=== PATIENT | female | born 1965 | race Caucasian/White ===

== ENCOUNTER 2017-02-25 11:53 | Emergency (ER) | payer OTHER ==
[2017-02-25] MEDS ORDERED: Acetaminophen/HYDROcodone 325-10 MG Tab PO ONE (13:03)
--- NOTE | 2017-02-25 13:13 | EDM.PDOC ---
ED HPI GENERAL MEDICAL PROBLEM - General Chief Complaint: Upper Extremity Injury/Pain Stated Complaint: LEFT ARM, PAIN Time Seen by Provider: 02/25/17 12:50 Source of Information: Reports: Patient History Limitations: Reports: No Limitations - History of Present Illness INITIAL COMMENTS - FREE TEXT/NARRATIVE: This 51 yo female patient reports to the ED with left arm pain. The patient reports she was seen in the ED in [place] on February 16 after falling while dancing. The patient reports she was dancing when they turned off the lights and she fell over a curb. The patient has a cast on her right distal arm, a splint on her left distal arm and a sling on her left arm. The patient reports initially she was taking 2 Oxycodone (5 mg) every 8 hours to control her pain, but over the last several days she has only been taking 1. The patient reports she ran out of pain medication yesterday and has noticed increased pain since that time. Onset: Other (constant) Onset Date: 02/16/17 Location: Reports: Upper Extremity, Left, Upper Extremity, Right Quality: Reports: Ache, Sharp Severity: Severe Improves with: Reports: Medication Worsens with: Reports: Movement Context: Reports: Other Associated Symptoms: Reports: No Other Symptoms Treatments CUSTOMER RESOLUTION SPECIALIST: Reports: Acetaminophen - Related Data Allergies Allergy/AdvReac Type Severity Reaction Status Date / Time diphenhydramine Allergy Severe Chest Pain Verified 02/25/17 12:08 [From Benadryl] sumatriptan [From Imitrex] Allergy Unknown unknown Verified 02/25/17 12:08 aspirin AdvReac Unknown unknown Verified 02/25/17 12:08 ibuprofen AdvReac Unknown affects Verified 02/25/17 12:08 seizures Home Meds: Home Meds Acetaminophen [Tylenol] 2 tab PO ASDIRECTED 02/25/17 [History] Calcium Carb/Vitamin D3/Vit K1 [Calcium + Vit D & K Chew] 1 tab PO DAILY [History] Levothyroxine [Synthroid] 100 mcg PO ACBREAKFAST 02/25/17 [History] Omeprazole Magnesium [Prilosec Otc] 2 tab PO DAILY 02/25/17 [History] oxyCODONE 1 tab PO TID 02/25/17 [History] Past Medical History HEENT History: Reports: Impaired Vision Other HEENT History: wears glasses Cardiovascular History: Reports: None Respiratory History: Reports: None Gastrointestinal History: Reports: GERD Genitourinary History: Reports: None Musculoskeletal History: Reports: Fibromyalgia Neurological History: Reports: Migraines, Seizure Psychiatric History: Reports: None Endocrine/Metabolic History: Reports: Hypothyroidism, Vitamin D Deficiency Hematologic History: Reports: None Immunologic History: Reports: None Oncologic (Cancer) History: Reports: None Dermatologic History: Reports: None - Past Surgical History HEENT Surgical History: Reports: Other (See Below) Other HEENT Surgeries/Procedures: 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 ED EXAM, GENERAL - Physical Exam Exam: See Below Exam Limited By: No Limitations General Appearance: Alert, WD/WN, Moderate Distress Eye Exam: Bilateral Eye: EOMI, Normal Inspection, PERRL Ears: Normal External Exam, Normal Canal, Hearing Grossly Normal, Normal TMs Nose: Normal Inspection, Normal Mucosa, No Blood Throat/Mouth: Normal Inspection, Normal Lips, Normal Teeth, Normal Gums, Normal Oropharynx, Normal Voice, No Airway Compromise Head: Atraumatic, Normocephalic Neck: Normal Inspection, Supple, Non-Tender, Full Range of Motion Respiratory/Chest: No Respiratory Distress, Lungs Clear, Normal Breath Sounds, No Accessory Muscle Use, Chest Non-Tender Cardiovascular: Normal Peripheral Pulses, Regular Rate, Rhythm, No Edema, No Gallop, No JVD, No Murmur, No Rub GI/Abdominal: Normal Bowel Sounds, Soft, Non-Tender, No Organomegaly, No Distention, No Abnormal Bruit, No Mass (Female) Exam: Deferred Rectal (Female) Exam: Deferred Extremities: Arm Pain (bilateral arm pain due to fractures previously diagnosed. Records were received from [facility] in [place] reporting bilateral fractures of her Radius/Ulna. ) Neurological: Alert, Oriented, CN II-XII Intact, Normal Cognition, Normal Gait, Normal Reflexes Psychiatric: Normal Affect, Normal Mood Skin Exam: Warm, Dry, Intact, Normal Color, No Rash Lymphatic: No Adenopathy Course - Vital Signs Last Recorded V/S: Last Vital Signs Temp 36.8 C 02/25/17 12:02 Pulse 92 02/25/17 12:02 Resp 22 H 02/25/17 12:02 BP 145/89 H 02/25/17 12:02 Pulse Ox 100 02/25/17 12:02 - Orders/Labs/Meds Meds: Medications Discontinued Medications Generic Name Dose Route Start Last Admin Trade Name Cale PRN Reason Stop Dose Admin Hydrocodone Bitart/Acetaminophen 1 tab 02/25/17 13:03 [place] 325-10 Mg PO 02/25/17 13:04 ONETIME ONE Departure - Departure Time of Disposition: 13:14 Disposition: Home, Self-Care 01 Condition: Fair Clinical Impression: Pain Closed fracture of bilateral radius and ulna Qualifiers: Encounter type: subsequent encounter Fracture healing: with routine healing Qualified Code(s): S52.201D - Unspecified fracture of shaft of right ulna, subsequent encounter for closed fracture with routine healing; S52.202D - Unspecified fracture of shaft of left ulna, subsequent encounter for closed fracture with routine healing; S52.91XD - Unspecified fracture of right forearm , subsequent encounter for closed fracture with routine healing; S52.92XD - Unspecified fracture of left forearm, subsequent encounter for closed fracture with routine healing - Discharge Information Instructions: Cast or Splint Care, [id number], Wrist Fracture Treated With Immobilization, [id number] Forms: ED Department Discharge Care Plan Goals: The patient was advised of the examination results during the visit. The patient was given an oral dose of [place] (10/325) while in the ED. The patient was discharged with a script for [place] (10/325) #16 to take 1 by mouth every 6 hours as needed for pain. The patient should follow-up with Dr. Cruz as previously scheduled. If the patient has any additional symptoms or concerns, the patient should visit her primary care facility or return to the emergency department.
[2017-02-25 13:18] VITALS: BP 152/98
== END 2017-02-25 13:23 | disposition home or self-care (01) ==
LOC: DL.ED 11:53
DX: S52.201D Unspecified fracture of shaft of right ulna, subsequent encounter for closed fracture with routine healing (principal); S52.202D Unspecified fracture of shaft of left ulna, subsequent encounter for closed fracture with routine healing; S52.91XD Unspecified fracture of right forearm, subsequent encounter for closed fracture with routine healing; S52.92XD Unspecified fracture of left forearm, subsequent encounter for closed fracture with routine healing; K21.9 Gastro-esophageal reflux disease without esophagitis; E89.2 Postprocedural hypoparathyroidism; Z90.710 Acquired absence of both cervix and uterus; Z88.6 Allergy status to analgesic agent; Z88.8 Allergy status to other drugs, medicaments and biological substances; Z79.899 Other long term (current) drug therapy; W01.0XXD Fall on same level from slipping, tripping and stumbling without subsequent striking against object, subsequent encounter; Y93.41 Activity, dancing
CPT/HCPCS: 99283; A9270

== ENCOUNTER 2021-03-12 15:48 | Emergency (ER) | payer MEDICAID, OTHER ==
[2021-03-12 16:12] VITALS: BP 179/110; PULSE 86
[2021-03-12 19:04] LABS: AMPHETAMINES,URINE NEGATIVE (NEGATIVE); BARBITURATES,URINE NEGATIVE (NEGATIVE); BENZODIAZEPINE,URINE NEGATIVE (NEGATIVE); MDMA (ECSTASY), URINE NEGATIVE (NEGATIVE); METHADONE,URINE NEGATIVE (NEGATIVE); METHAMPHETAMINES,URINE NEGATIVE (NEGATIVE); OPIATES,URINE NEGATIVE (NEGATIVE); OXYCODONE,URINE NEGATIVE (NEGATIVE); PHENCYCLIDINE,URINE NEGATIVE (NEGATIVE); TCA,URINE NEGATIVE (NEGATIVE)
[2021-03-12] MEDS ORDERED: Iopamidol 612 MG/ML 100 ML Bottle IVPUSH ONE (19:05)
[2021-03-12 19:13] LABS: ANION GAP 14.9 mEq/L (7-13); CHLORIDE,CL 104 mmol/L (98-107); SODIUM,NA 144 mmol/L (136-145)
--- NOTE | 2021-03-12 19:48 | EDM.PDOC ---
ED HPI GENERAL MEDICAL PROBLEM - General Chief Complaint: Genitourinary Problem Stated Complaint: POSSIBLE UTI Time Seen by Provider: 03/12/21 19:40 Source of Information: Reports: Patient History Limitations: Reports: No Limitations - History of Present Illness INITIAL COMMENTS - FREE TEXT/NARRATIVE: This 55 yo female patient reports to the ED with lower abdominal pain/tendern ess. The patient reports her pain has been getting worse over the past 4 days. The patient reports she does have a history of diverticulitis. The patient has had a tubal ligation and eventually a hysterectomy. The patient reports her symptoms currently feel like either a bladder infection of a flair of her diverticulitis. Onset Date: 03/08/21 Duration: Constant, Getting Worse Location: Reports: Abdomen (lower abdomen (left > right). ) Quality: Reports: Ache, Dull Severity: Moderate Improves with: Reports: None Worsens with: Reports: None Context: Reports: Other Associated Symptoms: Reports: No Other Symptoms Lower Abdomen Pain Score (Numeric/FACES): 3 - Related Data Allergies Allergy/AdvReac Type Severity Reaction Status Date / Time diphenhydramine Allergy Severe Chest Pain Verified 03/12/21 16:12 [From Benadryl] sumatriptan [From Imitrex] Allergy Unknown unknown Verified 03/12/21 16:12 aspirin AdvReac Unknown unknown Verified 03/12/21 16:12 ibuprofen AdvReac Unknown affects Verified 03/12/21 16:12 seizures Home Meds: Home Meds Acetaminophen [Tylenol] 650 mg PO ASDIRECTED 02/25/17 [History] Calcium Carb/Vitamin D3/Vit K1 [Calcium + Vit D & K Chew] 1 tab PO DAILY 02/25/17 [History] Levothyroxine [Synthroid] 100 mcg PO ACBREAKFAST 02/25/17 [History] Omeprazole Magnesium [Prilosec Otc] 2 tab PO DAILY 02/25/17 [History] Past Medical History HEENT History: Reports: Impaired Vision Other HEENT History: wears glasses Cardiovascular History: Reports: None Respiratory History: Reports: None Gastrointestinal History: Reports: GERD Genitourinary History: Reports: None Musculoskeletal History: Reports: Fibromyalgia Neurological History: Reports: Migraines, Seizure Psychiatric History: Reports: None Endocrine/Metabolic History: Reports: Hypothyroidism, Vitamin D Deficiency Hematologic History: Reports: None Immunologic History: Reports: None Oncologic (Cancer) History: Reports: None Dermatologic History: Reports: None - Infectious Disease History Infectious Disease History: Reports: None - Past Surgical History HEENT Surgical History: Reports: Other (See Below) Other HEENT Surgeries/Procedures: 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 Cardiovascular Surgical History: Reports: None Respiratory Surgical History: Reports: None GI Surgical History: Reports: None Female Surgical History: Reports: Hysterectomy Endocrine Surgical History: Reports: Parathyroidectomy Social & Family History - Family History Family Medical History: No Pertinent Family History - Tobacco Use Tobacco Use Status *Q: Never Tobacco User Second Hand Smoke Exposure: No - Caffeine Use Caffeine Use: Reports: Coffee - Recreational Drug Use Recreational Drug Use: No ED ROS GENERAL - Review of Systems Review Of Systems: Comprehensive ROS is negative, except as noted in HPI. ED EXAM, GI/ABD - Physical Exam Exam: See Below Exam Limited By: No Limitations General Appearance: Alert, WD/WN, No Apparent Distress Eyes: Bilateral: Normal Appearance, EOMI Ears: Normal External Exam, Normal Canal, Hearing Grossly Normal, Normal TMs Nose: Normal Inspection, Normal Mucosa, No Blood Throat/Mouth: Normal Inspection, Normal Lips, Normal Teeth, Normal Gums, Normal Oropharynx, Normal Voice, No Airway Compromise Head: Atraumatic, Normocephalic Neck: Normal Inspection, Supple, Non-Tender, Full Range of Motion Respiratory/Chest: No Respiratory Distress, Lungs Clear, Normal Breath Sounds, No Accessory Muscle Use, Chest Non-Tender Cardiovascular: Normal Peripheral Pulses, Regular Rate, Rhythm, No Edema, No Gallop, No JVD, No Murmur, No Rub GI/Abdominal Exam: No Organomegaly, No Distention, No Abnormal Bruit, No Mass, Pelvis Stable, Tender (diffuse lower abdominal tenderness) (Female) Exam: Deferred Rectal (Female) Exam: Deferred Back Exam: Normal Inspection, Full Range of Motion, NT Extremities: Normal Inspection, Normal Range of Motion, Non-Tender, Normal Capillary Refill, No Pedal Edema Neurological: Alert, Oriented, CN II-XII Intact, Normal Cognition, Normal Gait, Normal Reflexes, No Motor/Sensory Deficits Psychiatric: Normal Affect, Normal Mood Skin Exam: Warm, Dry, Intact, Normal Color, No Rash Lymphatic: No Adenopathy Course - Vital Signs Last Recorded V/S: Last Vital Signs Temp 97.7 F 08/15/21 16:06 Pulse 86 03/12/21 16:06 Resp 20 03/12/21 16:06 BP 179/110 H 03/12/21 16:06 Pulse Ox 99 03/12/21 16:06 - Orders/Labs/Meds Labs: Laboratory Tests 03/12/21 03/12/21 03/12/21 Range/Units 15:55 15:55 18:47 WBC 8.1 (5.0-10.0) 10^3/uL RBC 4.69 (4.2-5.4) 10^6/uL Hgb 14.8 (12.0-16.0) g/dL Hct 43.6 (37.0-47.0) % MCV 93.0 (80-100) fL MCH 31.6 (27.0-34.0) pg MCHC 33.9 (33.0-35.0) g/dL Plt Count 282 (150-450) 10^3/uL Neut % (Auto) 57.4 (42.2-75.2) % Lymph % (Auto) 32.5 (20.5-50.1) % Barton % (Auto) 8.7 H (2-8) % Eos % (Auto) 0.9 L (1.0-3.0) % Baso % (Auto) 0.5 (0.0-1.0) % Sodium (136-145) mmol/L Potassium (3.5-5.1) mmol/L Chloride (98-107) mmol/L Carbon Dioxide (21-32) mmol/L Anion Gap (7-13) mEq/L BUN (7-18) mg/dL Creatinine (0.55-1.02) mg/dL Est Cr Clr Drug Dosing mL/min Estimated GFR (MDRD) BUN/Creatinine Ratio (No establ ref range) Glucose (70-99) mg/dL Lactic Acid (0.4-2.0) mmol/L Calcium (8.5-10.1) mg/dL Total Bilirubin (0.2-1.0) mg/dL AST (15-37) U/L ALT (14-59) U/L Alkaline Phosphatase (46-116) U/L C-Reactive Protein (0.0-0.9) mg/dL Total Protein (6.4-8.2) g/dL Albumin (3.4-5.0) g/dL Globulin Albumin/Globulin Ratio Amylase (25-115) U/L Lipase (73-393) U/L Urine Color Yellow (YELLOW) Urine Appearance Clear (CLEAR) Urine pH 5.5 (5.0-9.0) Ur Specific [place] >= 1.030 (1.005-1.030) Urine Protein Negative (NEGATIVE) Urine Glucose (UA) Negative (NEGATIVE) Urine Ketones Negative (NEGATIVE) Urine Occult Blood Negative (NEGATIVE) Urine Nitrite Negative (NEGATIVE) Urine Bilirubin Negative (NEGATIVE) Urine Urobilinogen 0.2 (0.2-1.0) mg/dL Ur Leukocyte Esterase Negative (NEGATIVE) Urine Opiates Screen Negative (NEGATIVE) Ur Oxycodone Screen Negative (NEGATIVE) Urine Methadone Screen Negative (NEGATIVE) Ur Barbiturates Screen Negative (NEGATIVE) U Tricyclic Antidepress Negative (NEGATIVE) Ur Phencyclidine Scrn Negative (NEGATIVE) Ur Amphetamine Screen Negative (NEGATIVE) U Methamphetamines Scrn Negative (NEGATIVE) Urine MDMA Screen Negative (NEGATIVE) U Benzodiazepines Scrn Negative (NEGATIVE) Urine Cocaine Screen Negative (NEGATIVE) U Marijuana (THC) Screen Negative (NEGATIVE) Ethyl Alcohol (0) mg/dL 03/12/21 03/12/21 Range/Units 18:47 18:47 WBC (5.0-10.0) 10^3/uL RBC (4.2-5.4) 10^6/uL Hgb (12.0-16.0) g/dL Hct (37.0-47.0) % MCV (80-100) fL MCH (27.0-34.0) pg MCHC (33.0-35.0) g/dL Plt Count (150-450) 10^3/uL Neut % (Auto) (42.2-75.2) % Lymph % (Auto) (20.5-50.1) % Barton % (Auto) (2-8) % Eos % (Auto) (1.0-3.0) % Baso % (Auto) (0.0-1.0) % Sodium 144 (136-145) mmol/L Potassium 3.9 (3.5-5.1) mmol/L Chloride 104 (98-107) mmol/L Carbon Dioxide 29 (21-32) mmol/L Anion Gap 14.9 H (7-13) mEq/L BUN 17 (7-18) mg/dL Creatinine 0.89 (0.55-1.02) mg/dL Est Cr Clr Drug Dosing 65.78 mL/min Estimated GFR (MDRD) > 60 BUN/Creatinine Ratio 19.1 (No establ ref range) Glucose 94 (70-99) mg/dL Lactic Acid 0.7 (0.4-2.0) mmol/L Calcium 9.2 (8.5-10.1) mg/dL Total Bilirubin 0.4 (0.2-1.0) mg/dL AST 20 (15-37) U/L ALT 45 (14-59) U/L Alkaline Phosphatase 92 (46-116) U/L C-Reactive Protein < 0.2 (0.0-0.9) mg/dL Total Protein 7.6 (6.4-8.2) g/dL Albumin 3.8 (3.4-5.0) g/dL Globulin 3.8 Albumin/Globulin Ratio 1.0 Amylase 35 (25-115) U/L Lipase 125 (73-393) U/L Urine Color (YELLOW) Urine Appearance (CLEAR) Urine pH (5.0-9.0) Ur Specific [place] (1.005-1.030) Urine Protein (NEGATIVE) Urine Glucose (UA) (NEGATIVE) Urine Ketones (NEGATIVE) Urine Occult Blood (NEGATIVE) Urine Nitrite (NEGATIVE) Urine Bilirubin (NEGATIVE) Urine Urobilinogen (0.2-1.0) mg/dL Ur Leukocyte Esterase (NEGATIVE) Urine Opiates Screen (NEGATIVE) Ur Oxycodone Screen (NEGATIVE) Urine Methadone Screen (NEGATIVE) Ur Barbiturates Screen (NEGATIVE) U Tricyclic Antidepress (NEGATIVE) Ur Phencyclidine Scrn (NEGATIVE) Ur Amphetamine Screen (NEGATIVE) U Methamphetamines Scrn (NEGATIVE) Urine MDMA Screen (NEGATIVE) U Benzodiazepines Scrn (NEGATIVE) Urine Cocaine Screen (NEGATIVE) U Marijuana (THC) Screen (NEGATIVE) Ethyl Alcohol < 3 (0) mg/dL Meds: Medications Discontinued Medications Generic Name Dose Route Start Last Admin Trade Name Freq PRN Reason Stop Dose Admin Iopamidol 100 ml 03/12/21 19:05 03/12/21 19:10 Iopamidol 612 Mg/Ml 100 Ml Bottle IVPUSH 03/12/21 19:06 100 ml ONETIME ONE Administration - Radiology Interpretation Free Text/Narrative:: [facility] [place] [facility] Final Radiology Report Call: [phone] assistance Online chat: [email or web address] Name: NAIN CHAPPELL Age: 55Years F Date: 03/12/2021 SSN: -- : [id number] Study: CT ABDOMEN PELVIS W CONT Requesting Physician: Kat Joe Images: [id number] Addl Studies: Provided Clinical History: Sharp pain to LLQ; Diarrhea Contrast: With Contrast Medium: Contrast Amount: 100 mL Contrast Method: Intravenous (IV) Page 1 of 2 PROCEDURE INFORMATION: Exam: CT Abdomen And Pelvis With Contrast Exam date and time: 03/12/2021 7:19 PM Age: 55 years old Clinical indication: Other: Low abd pain; Additional info: Sharp pain to llq; Diarrhea TECHNIQUE: Imaging protocol: Computed tomography of the abdomen and pelvis with contrast. Radiation optimization: All CT scans at this facility use at least one of these dose optimization techniques: automated exposure control; mA and/or kV adjustment per patient size (includes targeted exams where dose is matched to clinical indication); or iterative reconstruction. Contrast material: [id number]; Contrast volume: 100 ml; Contrast route: INTRAVENOUS (IV); COMPARISON: No relevant prior studies available. FINDINGS: Lungs: 5 mm calcified granuloma in the right lower lobe. Calcified right hilar granulomatous lymph nodes. Pleural spaces: No pleural effusion. Heart: Normal heart size. No pericardial effusion. Liver: Diffuse moderate fatty liver change. Scattered hepatic punctate calcifications consistent with an old granulomatous process. Gallbladder and bile ducts: The gallbladder is normal in size and shape. No stones or inflammatory changes. Pancreas: The pancreas is normal in contour and attenuation. Spleen: Splenic granulomatous calcifications. Spleen is normal in size and contour. Adrenal glands: The adrenal glands are normal in size and contour bilaterally. NAIN CHAPPELL | Final Radiology Report CONFIDENTIALITY STATEMENT This report is intended only for use by the referring physician, and only in accordance with law. If you received this in error, call [phone]. Page 2 of 2 Kidneys and ureters: The kidneys bilaterally are unremarkable. Normal enhancement. No hydronephrosis. No calculi. Posterior left renal subcentimeter benign-appearing cyst. No further imaging follow-up is recommended based on MIPS criteria. Stomach and bowel: Gastric morphology is unremarkable. No edema. No gastric outlet obstruction. Small hiatal hernia. No acute features. Small bowel loops are normal in course and caliber. There is no mucosal edema or bowel wall thickening. No obstructive features. The colon contains formed fecal material. There is no bowel wall thickening. No inflammatory features. No obstruction. No colonic edema. A few small diverticular noted. No acute diverticulitis. No paracolic fatty inflammation. There is formed feces in the right colon and transverse colon. Paucity of feces distal to the splenic flexure. Appendix: A non inflamed appendix is seen. See series 2, images 109 to 105. Intraperitoneal space: No free fluid in the abdomen or pelvis. Vasculature: Unremarkable. No abdominal aortic aneurysm. Lymph nodes: See "Lungs" finding. Urinary bladder: Urinary bladder is unremarkable. Reproductive: Previous hysterectomy. Bones/joints: Unremarkable. No acute fracture. Soft tissues: Chest wall soft tissues remarkable for partially visualized breast implants. IMPRESSION: 1. No evidence of colitis or diverticulitis. No bowel edema. 2. Fatty liver change. 3. Granulomatous calcifications of the liver and spleen. 4. Previous hysterectomy. 5. No free fluid in the abdomen or pelvis. 6. A non inflamed appendix is visible. 7. Granulomatous calcifications of the right lung base, right hilar lymph nodes, liver parenchyma, and spleen. 8. Small hiatal hernia. No acute features. COMMENTS: Consistent with the [employer]'s Incidental Findings Committee white paper (J Am Aj Radiol 2018): Any incidental renal lesion less than 1 cm or classified as too small to characterize, or any incidental cystic renal lesion characterized as simple- appearing, is likely benign. No follow-up imaging is recommended for these lesions per consensus recommendations based on imaging criteria. Thank you for allowing us to participate in the care of your patient. Dictated and Authenticated by: Yung Figueroa MD 03/12/2021 8:27 PM Central Time ([place] & [place]) Departure - Departure Time of Disposition: 20:39 Disposition: Home, Self-Care 01 Condition: Fair Clinical Impression: Abdominal pain Qualifiers: Abdominal location: left lower quadrant Qualified Code(s): R10.32 - Left lower quadrant pain Abdominal muscle strain Qualifiers: Encounter type: initial encounter Qualified Code(s): S39.011A - Strain of musc le, fascia and tendon of abdomen, initial encounter - Discharge Information *PRESCRIPTION DRUG MONITORING PROGRAM REVIEWED*: Not Applicable *COPY OF PRESCRIPTION DRUG MONITORING REPORT IN PATIENT MARCELO: Not Applicable Instructions: Abdominal Pain, Adult, [id number], Muscle Strain Forms: ED Department Discharge Care Plan Goals: The patient was advised of the examination, lab and CT results during the visit. The patient was encouraged to take Tylenol for temporary symptom relief. The patient should follow-up with her primary care facility for the granuloma noted in CT. If the patient has any additional symptoms or concerns, the patient should either return to the emergency department or visit her primary care facility. Sepsis Event Note (ED) - Focused Exam Vital Signs: Vital Signs Temp Pulse Resp BP Pulse Ox 03/12/21 16:06 97.7 F 86 20 179/110 H 99
--- NOTE | 2021-03-12 20:27 | CT ---
PROCEDURE INFORMATION: Exam: CT Abdomen And Pelvis With Contrast Exam date and time: 03/12/2021 7:19 PM Age: 55 years old Clinical indication: Other: Low abd pain; Additional info: Sharp pain to llq; Diarrhea TECHNIQUE: Imaging protocol: Computed tomography of the abdomen and pelvis with contrast. Radiation optimization: All CT scans at this facility use at least one of these dose optimization techniques: automated exposure control; mA and/or kV adjustment per patient size (includes targeted exams where dose is matched to clinical indication); or iterative reconstruction. Contrast material: [id number]; Contrast volume: 100 ml; Contrast route: INTRAVENOUS (IV); COMPARISON: No relevant prior studies available. FINDINGS: Lungs: 5 mm calcified granuloma in the right lower lobe. Calcified right hilar granulomatous lymph nodes. Pleural spaces: No pleural effusion. Heart: Normal heart size. No pericardial effusion. Liver: Diffuse moderate fatty liver change. Scattered hepatic punctate calcifications consistent with an old granulomatous process. Gallbladder and bile ducts: The gallbladder is normal in size and shape. No stones or inflammatory changes. Pancreas: The pancreas is normal in contour and attenuation. Spleen: Splenic granulomatous calcifications. Spleen is normal in size and contour. Adrenal glands: The adrenal glands are normal in size and contour bilaterally. Kidneys and ureters: The kidneys bilaterally are unremarkable. Normal enhancement. No hydronephrosis. No calculi. Posterior left renal subcentimeter benign-appearing cyst. No further imaging follow-up is recommended based on MIPS criteria. Stomach and bowel: Gastric morphology is unremarkable. No edema. No gastric outlet obstruction. Small hiatal hernia. No acute features. Small bowel loops are normal in course and caliber. There is no mucosal edema or bowel wall thickening. No obstructive features. The colon contains formed fecal material. There is no bowel wall thickening. No inflammatory features. No obstruction. No colonic edema. A few small diverticular noted. No acute diverticulitis. No paracolic fatty inflammation. There is formed feces in the right colon and transverse colon. Paucity of feces distal to the splenic flexure. Appendix: A non inflamed appendix is seen. See series 2, images 109 to 105. Intraperitoneal space: No free fluid in the abdomen or pelvis. Vasculature: Unremarkable. No abdominal aortic aneurysm. Lymph nodes: See "Lungs" finding. Urinary bladder: Urinary bladder is unremarkable. Reproductive: Previous hysterectomy. Bones/joints: Unremarkable. No acute fracture. Soft tissues: Chest wall soft tissues remarkable for partially visualized breast implants. IMPRESSION: 1. No evidence of colitis or diverticulitis. No bowel edema. 2. Fatty liver change. 3. Granulomatous calcifications of the liver and spleen. 4. Previous hysterectomy. 5. No free fluid in the abdomen or pelvis. 6. A non inflamed appendix is visible. 7. Granulomatous calcifications of the right lung base, right hilar lymph nodes, liver parenchyma, and spleen. 8. Small hiatal hernia. No acute features. COMMENTS: Consistent with the [employer]'s Incidental Findings Committee white paper (J Am Aj Radiol 2018): Any incidental renal lesion less than 1 cm or classified as too small to characterize, or any incidental cystic renal lesion characterized as simple-appearing, is likely benign. No follow-up imaging is recommended for these lesions per consensus recommendations based on imaging criteria.
[2021-03-12] MEDS ORDERED: Acetaminophen 500 MG Tab PO ONE (20:40)
== END 2021-03-12 20:50 | disposition home or self-care (01) ==
LOC: DL.ED 15:48
DX: S39.011A Strain of muscle, fascia and tendon of abdomen, initial encounter (principal); E03.9 Hypothyroidism, unspecified; Z88.8 Allergy status to other drugs, medicaments and biological substances; Z79.899 Other long term (current) drug therapy; X58.XXXA Exposure to other specified factors, initial encounter
CPT/HCPCS: 36415; 74177; 80053; 80305; 80307; 81003; 82150; 83605; 83690; 85025; 86140; 99284; A9270; Q9967

== ENCOUNTER 2021-10-28 13:12 | Emergency (ER) | payer MEDICAID ==
[2021-10-28] MEDS ORDERED: Cyclobenzaprine 10 MG Tab PO ONE ×2 (13:13→14:25)
[2021-10-28 13:34] VITALS: BP 164/107; PULSE 76
[2021-10-28] MEDS ORDERED: Acetaminophen 325 MG Tab PO ONE (14:25)
[2021-10-28] MEDS ORDERED: Cyclobenzaprine 10 MG Tab ONE (14:30)
== END 2021-10-28 14:40 | disposition home or self-care (01) ==
LOC: DL.ED 13:12
DX: M54.6 Pain in thoracic spine (principal); M54.50 Low back pain, unspecified; K21.9 Gastro-esophageal reflux disease without esophagitis; E03.9 Hypothyroidism, unspecified; Z88.8 Allergy status to other drugs, medicaments and biological substances; Z79.899 Other long term (current) drug therapy
CPT/HCPCS: 81003; 99284; A9270-GY